=== PATIENT | male | born 1960 | race Caucasian/White ===

== ENCOUNTER 2018-02-14 07:45 | Emergency (ER) | payer BC, OTHER ==
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
--- NOTE | 2018-02-14 08:34 | RAD ---
Indication: Left humerus injury. 2 views of left humerus demonstrates no fracture. Calcific tendinitis of the supraspinatus tendon is noted. IMPRESSION: NO DEFINITE FRACTURE OF THE LEFT HUMERUS IS NOTED.
[2018-02-14 09:18] VITALS: BP 148/92
== END 2018-02-14 09:16 | disposition home or self-care (01) ==
LOC: ED 07:45
DX: S49.92XA Unspecified injury of left shoulder and upper arm, initial encounter (principal); I10 Essential (primary) hypertension; F32.9 Major depressive disorder, single episode, unspecified; V89.2XXA Person injured in unspecified motor-vehicle accident, traffic, initial encounter; Y92.9 Unspecified place or not applicable
CPT/HCPCS: 99282

== ENCOUNTER 2018-04-19 07:51 | Day surgery (SDC) | payer OTHER ==
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
[~2018-04-19 07:51] MED LIST: Buffered Lidocaine 0.9% SYRIN* 5 ML/SYR SYRINGE INTRADERM ONE; Dexamethasone IV* 4 MG/ML 1 ML (4 MG) IV SLOW PU ONE; Famotidine IV* 10 MG/ML 2 ML (20 mg) IV ONE
[2018-04-19] MEDS ORDERED: Famotidine IV* 10 MG/ML 2 ML (20 mg) ONE (08:08)
[2018-04-19] MEDS ORDERED: Dexamethasone IV* 4 MG/ML 1 ML (4 MG) ONE (08:09)
[2018-04-19] MEDS ORDERED: ceFAZolin 2 GM in NS PREMIX(*) 2 GM/100 ML BAG IVPB ONE (08:09)
[2018-04-19] MEDS ORDERED: fentaNYL* 50 MCG/ML 2 ML VIAL (100 MCG VIAL) ONE ×3 (09:15→13:53)
[2018-04-19] MEDS ORDERED: Lidocaine 2% PF * 5 ML VIAL ONE (09:16)
[2018-04-19] MEDS ORDERED: Midazolam* 1 MG/ML 5 ML VIAL (5 MG) ONE (09:16)
[2018-04-19] MEDS ORDERED: Ondansetron INJ* 2 MG/ML VIAL ONE (09:16)
[2018-04-19] MEDS ORDERED: Propofol* 10 MG/ML 20 ML BTL IV PUSH ONE (09:16)
[2018-04-19] MEDS ORDERED: ROPIVACAINE 5 MG/ML 30 ML BTL (0.5%) ONE (09:46)
[2018-04-19] MEDS ORDERED: Bupivacaine 0.5% SDV PF* 30ML VIAL ONE (10:17)
[2018-04-19] MEDS ORDERED: fentaNYL* 50 MCG/ML 2 ML VIAL (100 MCG VIAL) IV PRN (11:00)
[2018-04-19] MEDS ORDERED: DiMENhydriNATE IV* 50 MG/ML VIAL IV PUSH PRN (11:00)
[2018-04-19] MEDS ORDERED: Ondansetron INJ* 2 MG/ML VIAL IV PRN (11:00)
[2018-04-19] MEDS ORDERED: Naloxone* 0.4 MG/ML 1 ML VIAL IV PRN (11:00)
[2018-04-19] MEDS ORDERED: Glycopyrrolate IV* 0.2 MG/ML 1 ML VIAL ONE (11:27)
[2018-04-19 14:43] VITALS: BP 125/87
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
== END 2018-04-19 14:30 | disposition home or self-care (01) ==
LOC: OR 07:51
PROVIDERS: ATTEND Orthopaedic Surgery
DX: M75.122 Complete rotator cuff tear or rupture of left shoulder, not specified as traumatic (principal); I10 Essential (primary) hypertension; Z79.899 Other long term (current) drug therapy; G89.18 Other acute postprocedural pain
CPT/HCPCS: C1713; J0690; J1100; J2250; J2405; J2704; J2795; J3010; Q4125

== ENCOUNTER 2018-08-03 18:13 | Observation (INO) | payer OTHER ==
--- NOTE | 2018-08-03 18:41 | ED ---
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 There was a positive witnessed LOC with unknown length. The patient does not recall anything related to the fall. Patient reports MONTEIRO. The patient rates the pain 5/10 in severity. The patient did recently have a URI. He does take Lisinopril. - History Of Current Complaint Stated Complaint: FALL Time Seen by Provider: 08/03/18 18:25 Hx Obtained From: Patient Mechanism Of Injury: Fall From A Standing Position Onset/Duration: Started Hours Ago - a half, Still Present Onset of Pain: Immediate Severity Currently: Mild Severity Initially: Mild Pain Intensity: 5 Pain Scale Used: 0-10 Numeric Location of Head Injury: Occipital Location: Diffuse Associated Signs And Symptoms: LOC Duration Unknown, Memory Loss - Allergies/Home Medications Allergies/Adverse Reactions: Allergies Allergy/AdvReac Type Severity Reaction Status Date / Time oxycodone Allergy Severe Hives Verified 04/19/18 08:14 PMH/Surg Hx/FS Hx/Imm Hx Endocrine/Hematology History: Denies: Hx Bone Marrow Disease, Hx Diabetes, Hx Sickle Cell Disease, Hx Anemia Cardiovascular History: Reports: Hx Hypertension - ON MEDICATION FOR Denies: Hx Pacemaker/ICD Respiratory History: Denies: Hx Asthma, Other Respiratory Problems/Disorders GI History: Reports: Other GI Disorders - HX DIVERTICULOSIS History: Denies: Hx Dialysis, Hx Renal Disease Musculoskeletal History: Reports: Hx Arthritis - LEFT SHOULDER, Hx Bursitis, Other Musculoskeletal History - LEFT SHOULDER ROTATOR CUFF REPAIR X 3 Sensory History: Reports: Hx Contacts or Glasses - GLASSES Denies: Hx Cataracts, Hx Glaucoma, Hx Hearing Aid Opthamlomology History: Reports: Hx Contacts or Glasses - GLASSES Denies: Hx Cataracts, Hx Glaucoma Neurological History: Reports: Other Neuro Impairments/Disorders - LEFT SHOULDER WEAKNESS, PAIN Psychiatric History: Reports: Hx Depression - CURRENTLY NO MEDICATION FOR Denies: Hx Panic Disorder - Surgical History Surgery Procedure, Year, and Place: 09/2011- 11/2014 LEFT SHOULDER SURGERY X3 [facility] [place]. TONSILLECTOMY AND ADENOIDECTOMY A CHILD. RIGHT EAR SURGERY (IN OFFICE , BONE GROUND DOWN-NO IMPLANTS) [place] 2009. LEFT SHOULDER ROTATOR CUFF REPAIR 09/26 [facility]. LEFT SHOULDER ROTATOR CUFF REPAIR 05/30 [facility]. LEFT SHOULDER SURGERY 09/29 [facility] Hx Anesthesia Reactions: No Infectious Disease History: No Infectious Disease History: Denies: Hx Clostridium Difficile, Hx Hepatitis, Hx Human Immunodeficiency Virus (HIV), Hx of Known/Suspected MRSA, Hx Shingles, Hx Tuberculosis, Hx Known/ Suspected VRE, Hx Known/Suspected VRSA, History Other Infectious Disease, Traveled Outside the [place] in Last 30 Days - Family History Known Family History: Positive: Cardiac Disease - Social History Alcohol Use: None Substance Use Type: Reports: None Smoking Status (MU): Never Smoked Tobacco Have You Smoked in the Last Year: No Review of Systems Constitutional: Other - fall Negative: Fever, Chills Negative: Erythema Negative: Sore Throat Negative: Chest Pain Negative: Shortness Of Breath, Cough Negative: Abdominal Pain, Vomiting, Nausea Negative: dysuria, hematuria Negative: Myalgia, Edema Negative: Rash Neurological: Negative - dizziness Positive: Headache, Syncope - w/ memory loss All Other Systems Reviewed And Are Negative: Yes Physical Exam - Summary Physical Exam Summary: Constitutional: Well-developed, Well-nourished, Alert. (-) Distressed Skin: Warm, Dry HENT: there is an abrasion on the occipital area. Eyes: Conjunctiva normal Neck: Musculoskeletal ROM normal neck. (-) JVD, (-) Stridor, (-) Tracheal deviation Cardio: Rhythm regular, rate normal, Heart sounds normal; Intact distal pulses; The pedal pulses are 2+ and symmetric. Radial pulses are 2+ and symmetric. (-) Murmur Pulmonary/Chest wall: Effort normal. (-) Respiratory distress, (-) Wheezes, (-) Rales Abd: Soft. (-) Tenderness, (-) Distension, (-) Guarding, (-) Rebound Musculoskeletal: (-) Edema Lymph: (-) Cervical adenopathy Neuro: Alert, Oriented x3, Strength normal, Cranial nerves II-XII are grossly intact. (-) Dysmetria, (-) Nystagmus, (-) Ataxia by finger to nose testing, (-) Sensory deficit. Psych: Mood and affect Normal Triage Information Reviewed: Yes Vital Signs On Initial Exam: Initial Vitals Temp Pulse Resp BP Pulse Ox 99.8 F 83 18 145/82 97 08/03/18 18:24 08/03/18 18:24 08/03/18 18:24 08/03/18 18:24 08/03/18 18:24 Vital Signs Reviewed: Yes - Naya Coma Scale Best Eye Response: 4 - Spontaneous Best Motor Response: 6 - Obeys Commands Best Verbal Response: 5 - Oriented Coma Scale Total: 15 Diagnostics - Vital Signs Vital Signs Temp Pulse Resp BP Pulse Ox 08/03/18 18:24 99.8 F 83 18 145/82 97 - Laboratory Result Diagrams: 08/03/18 18:54 08/03/18 18:54 Lab Statement: Any lab studies that have been ordered have been reviewed, and results considered in the medical decision making process. - Radiology CXR Radiology Interpretation Completed By: ED Physician Summary of Radiographic Findings: no acute disease . Pending official report - CT CT Cspine CT Interpretation Completed By: Radiologist Summary of CT Findings: No acute abnormality. Straightening of the cervical spine which may be muscular/ligamentous strain. Multilevel uncovertebral and facet Atrophic with neural foramina narrowing. ED physician has reviewed this radiology report. CT brain CT Interpretation Completed By: Radiologist Summary of CT Findings: No acute intracranial abnormality. Chronic microvascular ischemic changes. ED physician has reviewed this radiology report. - EKG 1911 Cardiac Rate: NL EKG Rhythm: Sinus Rhythm - at 74 BPM Summary of EKG Findings: no STEMI Re-Evaluation - Re-Evaluation First Eval Re-Evaluation Time: 20:34 Change: Unchanged Comment: The patient was offered an ice pack and pain medications and he declined both. He does have a stable mental status. 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 There was a positive witnessed LOC with unknown length. The patient does not recall anything related to the fall. Patient reports MONTEIRO. The patient rates the pain 5/10 in severity. The patient did recently have a URI. He does take Lisinopril. An EKG reveals NSR. CT Brain reveals, per radiologist, No acute intracranial abnormality. Chronic microvascular ischemic changes. CXR reveals, per radiologist, no acute disease. CT C-spine reveals, per radiologist , No acute abnormality. Straightening of the cervical spine which may be muscular/ligamentous strain. Multilevel uncovertebral and facet Atrophic with neural foramina narrowing. Bloodwork obtained. In the ED course the patient was given tylenol. The LOC was most likely secondary to concussion. Although since he has no recollection the patient will be admitted to r/o [facility]. We discussed patient care with Dr. Houston and she has accepted the patient for admision. Patient will be admitted. The patient is agreeable with this plan. - Diagnoses Provider Diagnoses: Closed head injury, LOC (loss of consciousness) - Physician Notifications Discussed Care Of Patient With: Esha Houston Time Discussed With Above Provider: 20:50 Instructed by Provider To: Admit As Inpatient Discharge - Sign-Out/Discharge Documenting (check all that apply): Patient Departure - admitted - Discharge Plan Condition: Fair Disposition: ADMITTED TO [facility] Referrals: Nubia ACOSTA,Clare Pace [Primary Care Provider] - - Attestation Statements Document Initiated by Scribe: Yes Documenting Scribe: Brayan David Provider For Whom Scribe is Documenting (Include Credential): Andrew Rivas MD Scribe Attestation: Brayan Sauceda , scribed for Andrew Rivas MD on 08/03/18 at 2058. Status of Scribe Document: Ready
[2018-08-03 19:03] LABS: ABS Basophils 0.1 10^3/ul (0-0.2); ABS Eosinophils 0.3 10^3/ul (0-0.6); ABS Lymphocytes 2.2 10^3/ul (1.0-4.8); ABS Monocytes 1.1 10^3/ul (0-0.8); ABS Nucleated RBC 0 10^3/ul; Eosinophil % 2.6 %; Hematocrit 45 % (42-52); Hemoglobin 15.2 g/dl (14.0-18.0); Lymphocyte % 22.8 %; Mean Corpuscular HGB Conc 34 g/dl (31-36); Mean Corpuscular Hemoglobin 29 pg (27-31); Mean Corpuscular Volume 85 fL (80-94); Mean Platelet Volume 8.4 fL (7.4-10.4); Nucleated Red Blood Cells % 0.1; Platelet Count 193 10^3/ul (150-450); Red Blood Count 5.28 10^6/ul (4.00-5.40); Red Cell Distribution Width 14 % (10.5-15); White Blood Count 9.7 10^3/ul (3.5-10.8)
[2018-08-03] MEDS ORDERED: Acetaminophen TAB* 325 MG PO ONE (19:03)
[2018-08-03 19:31] LABS: Albumin 4.1 g/dL (3.2-5.2); Albumin/Globulin Ratio 1.2 (1-3); BUN/Creatinine Ratio 22.2 (8-20); Calcium 9.8 mg/dL (8.6-10.3); Globulin 3.4 g/dL (2-4); Potassium 4.5 mmol/L (3.5-5.0); Total Bilirubin 0.3 mg/dL (0.2-1.0); Total Protein 7.5 g/dL (6.4-8.9)
[2018-08-03] MEDS ORDERED: Acetaminophen TAB* 325 MG PO PRN (21:08)
[2018-08-03] MEDS ORDERED: Ondansetron INJ* 2 MG/ML VIAL IV PRN (21:08)
--- NOTE | 2018-08-03 23:08 | HP ---
CC: Dr. Marin * ADMISSION HISTORY AND PHYSICAL: DATE OF ADMISSION: 08/03/18 PRIMARY CARE PROVIDER: Dr. Marin. MY ATTENDING WHILE IN THE HOSPITAL: Dr. Esha An.* (DICTATED BY KRISTINA FALK) CHIEF COMPLAINT: Fall on the ice with loss of consciousness and memory loss. HISTORY OF PRESENT ILLNESS: Mr. 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 The patient states that he remembers being in the office and then remembers being in the ambulance. Does not remember anything in between. The patient denies nausea, vomiting, headache, chest pain , or shortness of breath. The patient denies recent illness. The patient denies palpitations. The patient does not remember any prodromal symptoms to this episode. The patient had a recent cough for a month related to upper respiratory infection, but this has now resolved. The patient was in a normal state of health. The patient denies dysuria, abdominal pain, diarrhea, dehydration, weight loss, weight gain, swelling in his legs, difficulty breathing when lying flat, dyspnea on exertion, or other alarming symptoms. The patient was brought in by EMS to the hospital. The patient had a brain CT which was negative, electrocardiogram which was unremarkable. Cervical spine CT shows possible whiplash injury, but no other traumatic injury and a brain CT which showed no acute intracranial pathology. Due to memory loss surrounding the patient's incident and his age and risk factors for arrhythmia, we were asked to evaluate the patient for admission. PAST MEDICAL HISTORY: Hypertension. PAST SURGICAL HISTORY: Left shoulder surgery x4. MEDICATIONS: 1. Lisinopril/hydrochlorothiazide 20/12.5 one tab p.o. q.a.m. 2. Niacin 250 mg p.o. q.a.m. ALLERGIES: PERCOCET. FAMILY HISTORY: The patient's mother had a heart attack. The patient's father of a complicated appendix. The patient's brother has hypertension. The patient's 2 sisters have hypertension. The patient has a brother who of stomach cancer. SOCIAL HISTORY: The patient never smoked, drank, or used illicit drugs. 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 The patient is , has 2 children. The patient's surrogate decision maker will be his , Tena Vaughn. REVIEW OF SYSTEMS: A 14-point review of systems has been reviewed with the patient and is negative except as above in the HPI. PHYSICAL EXAMINATION GENERAL: The patient is a 57-year-old male who appears stated age, sitting comfortably in bed, in no acute distress. HEENT: Head normocephalic. The patient has a large contusion over his posterior scalp, no crepitus palpated. Sclerae anicteric. No conjunctival injection. Nasal mucosa moist. Oral mucosa moist. No oropharyngeal erythema, discharge, or exudate. NECK: Supple, nontender. No lymphadenopathy, no carotid bruits auscultated, no JVD. RESPIRATORY: Clear to auscultation bilaterally. No wheezes, rales, or rhonchi. Good air exchange bilaterally. CARDIAC: Regular rate and rhythm. No clicks, murmurs, gallops, or rubs. Pulses 2+ in the bilateral dorsalis pedis, posterior tibialis, and radial areas. ABDOMEN: Soft, nontender, and nondistended. Bowel sounds present in all 4 quadrants. No hepatosplenomegaly. No abdominal bruits auscultated. No hepatojugular reflux. GENITOURINARY: No suprapubic or CVA tenderness. SKIN: Clean, dry, and intact. No rashes except for above ecchymosis on the posterior scalp. NEUROLOGIC: Cranial nerves II through XII intact. alert and oriented x3. Reflexes 2+ in bilateral biceps, patellar and Achilles areas. Cerebellar testing performed without difficulty. No nystagmus. PSYCHIATRIC: Pleasant and cooperative. LABORATORY DATA: White blood cell count 9.7, hemoglobin 15.2, platelet count 193,000. Sodium 138, potassium 4.5, chloride 103, carbon dioxide 27, anion gap 8, BUN 24, creatinine 1.08, lactic acid 1.6, calcium 9.8, bilirubin 0.3, AST 23 , ALT 30, alkaline phosphatase 61. Troponin I of 0.00. Protein 7.5, albumin 4.1, globulin 3.4. IMAGING: Chest x-ray no official read, poor quality study, no acute cardiopulmonary disease to this author's interpretation. An EKG shows rate of 74; QTc of 428; early repolarization in V2, V3, and V4; normal axis; no hypertrophy or enlargement. Compared with previous study, no significant changes. Brain CT read as no acute intracranial pathology. Cervical spine CT read as straightening of the cervical spine which may be muscular/ligamentous strain, multilevel vertebral atrophy with neuroforaminal narrowing. No acute abnormality. ASSESSMENT AND PLAN/IMPRESSION: Mr. Vaughn is a 57-year-old male with past medical history significant only for hypertension who presents to the emergency department after a fall with a likely concussion, but will be monitored overnight to rule out syncopal episode. 1. Loss of consciousness, concussion. The patient had what appears to be a mechanical fall on the ice which was witnessed by a hockey defensive secondary coach and several of his team members. The patient does not remember anything after being in the office, before he walked on the ice, and before being in the ambulance on the way to the hospital. The patient denies any prodromal symptoms. The patient is not having any symptoms of heart failure or acute coronary syndrome at this time. The patient has mild pain. The patient will be admitted to the hospital , have 3 troponins to rule out acute coronary syndrome. The patient will have a repeat EKG in the morning and transthoracic echocardiogram to rule out any wall motion abnormalities which may predispose to arrhythmia. The patient has no postictal symptoms, just amnesia. It is very likely the patient has a concussion. EEG is not indicated at this time unless the patient has a recurrent event. 2. Hypertension. Continue Zestoretic. 3. DVT prophylaxis. The patient is low risk and will have SCDs. 4. FEN. The patient will have a heart-healthy diet without caffeine and the patient does not need any fluids. 5. Disposition. The patient will be on observation. TIME SPENT: Approximately 45 minutes were spent on this admission, 30 of which was spent [id number] with the patient obtaining history and physical and discussing treatment plan. This plan was discussed with my attending, Dr. Esha An and she is in agreement. KRISTINA FALK [id number]/[facility] #: [id number] ENZO
[2018-08-04 07:22] LABS: BUN/Creatinine Ratio 21.4 (8-20); Calcium 9.2 mg/dL (8.6-10.3); EGFR Non-African American 78.3 (>60); HDL Cholesterol 36.3 mg/dL; Potassium 4.3 mmol/L (3.5-5.0)
[2018-08-04] MEDS ORDERED: Lisinopril TAB* 10 MG PO SCH (09:00)
[2018-08-04] MEDS ORDERED: Hydrochlorothiazide TAB* 25 MG PO SCH (09:00)
--- NOTE | 2018-08-04 11:20 | ECHO ---
Patient: BRE CELAYA 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 Technical Comments: The study quality is fair. Completed at 1025. Left Ventricle: The left ventricular chamber size is normal. Mild concentric left ventricular hypertrophy is observed. There is normal left ventricular systolic function. The estimated ejection fraction is 55-60%. Abnormal left ventricular diastolic function is observed. Left Atrium: The left atrial chamber size is normal. Right Ventricle: The right ventricular cavity size is normal. The right ventricular global systolic function is normal. Right Atrium: The right atrial cavity size is normal. Aortic Valve: The aortic valve is trileaflet. There is no evidence of aortic regurgitation. There is no evidence of aortic stenosis. Mitral Valve: The mitral valve leaflets are mildly thickened. There is no evidence of mitral regurgitation. There is no evidence of mitral stenosis. Tricuspid Valve: The tricuspid valve leaflets are normal. There is no evidence of tricuspid valve regurgitation. There is no tricuspid stenosis. Pulmonic Valve: The pulmonic valve appears normal. There is no evidence of pulmonic regurgitation. There is no pulmonic stenosis. Pericardium: The pericardium appears normal. Aorta: There is no dilatation of the ascending aorta. There is no dilatation of the aortic arch. There is no dilation of the aortic root. Pulmonary Artery: The main pulmonary artery appears normal. Venous: The venous system is not well visualized. Summary: There was not any prior study for comparison. Conclusions The left ventricular chamber size is normal. Mild concentric left ventricular hypertrophy is observed. The estimated ejection fraction is 55-60%. Abnormal left ventricular diastolic function is observed. No significant valvular disease. Measurements Name Value Normal Range RVIDd (AP) 2D 2.8 cm (0.9 - 2.6) RVDdMajor (2D) 3 cm (2.2 - 4.4) RAd ISD 4CH 5.5 cm (3.4 - 4.9) RA (A4C)W 3.2 cm (2.9 - 4.6) IVSd (2D) 1.1 cm (0.6 - 1) LVPWd (2D) 1.2 cm (0.6 - 1) LVIDd (2D) 5.2 cm (3.6 - 5.4) LVIDs (2D) 3.3 cm - LV FS (2D) 37 % (25 - 45) Aortic Annulus 2.1 cm (1.4 - 2.6) Ao root diameter (2D) 3 cm (2.1 - 3.5) Ascending Ao 3.4 cm (2.1 - 3.4) Aortic arch 3.2 cm (1.8 - 3.4) Descending Ao 0.6 cm - LA dimension (AP) 2D 3.7 cm (2.3 - 3.8) LAd ISD 4CH 5.2 cm (2.9 - 5.3) LA ISD 4CH W 3.8 cm (2.5 - 4.5) Name Value Normal Range LA ESV SP 4CH (A/L) 17 ml - LA ESV SP 2CH (A/L) 31 ml - LA ESV BP (A/L) index 23.4 ml/m2 - Name Value Normal Range MV E-wave Vmax 0.6 m/sec - MV deceleration time 278 msec - MV A-wave Vmax 0.8 m/sec - MV E:A ratio 0.8 ratio - LV septal e' Vmax 0.1 m/sec - LV E:e' septal ratio 6 ratio - Name Value Normal Range AV Vmax 1.5 m/sec - AV VTI 26 cm - AV peak gradient 9 mmHg - AV mean gradient 4 mmHg - LVOT Vmax 1.1 m/sec - LVOT VTI 21 cm - LVOT peak gradient 5 mmHg - LVOT mean gradient 2 mmHg - Name Value Normal Range PV Vmax 1.1 m/sec - PV peak gradient 5 mmHg -
[2018-08-04 11:42] VITALS: BP 110/70
--- NOTE | 2018-08-05 00:49 | DS ---
CC: Dr. Marin DISCHARGE SUMMARY: DATE OF ADMISSION: 08/03/18 DATE OF DISCHARGE: 08/04/18 PRIMARY CARE PROVIDER: Dr. Marin. ATTENDING PHYSICIAN: Dr. Flores (dictated by Jose Carlos Lindquist NP). PRIMARY DIAGNOSES: 1. Mechanical fall with resulting concussion. 2. Hyperlipidemia. SECONDARY DIAGNOSIS: 1. Hypertension. STUDIES WHILE IN THE HOSPITAL: 1. Chest x-ray on 08/03/18, reads as no evidence for acute intrathoracic disease. 2. EKG on 08/03/18, shows normal sinus rhythm with a rate of 74, QTc 428, no ischemic changes. 3. Brain CT on 08/03/18, reads as no acute intracranial abnormality. Chronic microvascular ischemic changes. 4. Cervical spine CT on 08/03/18, reads as no acute abnormality. Straightening of the cervical spine which may be muscular/ligamentous strain. Multilevel uncovertebral and facet atrophic with neural foraminal narrowing. 5. EKG on 08/04/18, shows normal sinus rhythm with a rate of 80, QTc 440, no ischemic changes. No changes from previous EKG. 6. Transthoracic echocardiogram on 08/04/18, reads as the left ventricular chamber size is normal. Mild concentric left ventricular hypertrophy is observed. The estimated ejection fraction is 55% to 60%. Abnormal left ventricular diastolic function is observed. No significant valvular disease. HISTORY OF PRESENT ILLNESS AND HOSPITAL COURSE: Mr. Vaughn is a 57-year-old male with past medical history of hypertension, who presented through the emergency room on 08/03/18 after a mechanical fall with loss of consciousness. Please see the history and physical by KRISTINA Dwyer for complete summary of the events leading up to this hospitalization. 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 He lost consciousness for an unknown period of time and was brought to the emergency room by EMS. The patient does have memory of being in the ambulance, though does not remember anything prior to that after the fall. He had no nausea, vomiting, headache, chest pain, or shortness of breath. He had imaging as noted above which was essentially unremarkable. Due to his risk factors, the patient was admitted by the hospitalist service for loss of consciousness. The patient had an uneventful night. He had a lipid panel which showed triglycerides of 120, total cholesterol of 137, LDL of 77, and HDL of 36. He had an A1c of 6.1%. He had an echocardiogram as noted above. Syncope workup has been unremarkable. The patient reports feeling well today. He has no complaints of nausea, vomiting, dizziness, headache, difficulty concentrating, or visual changes. He has no focal neurological deficits. He still does not have any memory of the fall itself, though remembers working on the ice and slipping and remembers waking up in the ambulance. Because of his unremarkable workup, there are no cardiac or further neurological concerns at this point. Mr. Vaughn is stable for discharge today. Vital signs are as follows: Temp 98.1, heart rate 77, respiratory rate 16, oxygen saturation 97% on room air, blood pressure 110/70. DISCHARGE MEDICATIONS: New medications: Atorvastatin 10 mg p.o. at bedtime. Continued medications: Lisinopril/hydrochlorothiazide 20/12.5 one tab p.o. daily. Discontinued medications: Niacin. DISCHARGE PLAN: Mr. Vaughn will be discharged home with his . Activity will be as tolerated, though I have advised him to take it easy for the next few days due to his concussion. Diet will be regular as tolerated. I did speak with the patient about his elevated A1c which does put him in the range for prediabetes and encouraged weight loss and diet changes. I also spoke with the patient about his lipid panel and although lipids are under good control, according to the ASCVD risk algorithm, the patient has a 6.7% risk of cardiovascular event in the next 10 years; and therefore, a moderate intensity statin is recommended. I did speak with the patient about diet changes, though he is agreeable to starting a statin at this point for primary prevention. He should discontinue his niacin due to the possible interaction with atorvastatin. He can continue his lisinopril/hydrochlorothiazide. He should follow up with his primary care provider in 4 to 7 days. He has been advised to return to the emergency room or nearest hospital for any worsening of symptoms, shortness of breath, lightheadedness, dizziness, chest discomfort, high fevers, chills, night sweats, loss of consciousness, or any other worrisome signs or symptoms. This is a summarized report of a complex medical history and hospital stay. For further details, please see the entire medical record. TIME SPENT: Approximately 35 minutes were spent on this discharge. JOSE CARLOS LINDQUIST, BRUSHER HAND [id number]/[facility] #: [id number] MTDAlexis
== END 2018-08-04 12:35 | disposition home or self-care (01) ==
LOC: ED 18:13 → MEDTELE 21:09
PROVIDERS: ADMIT Internal Medicine; ATTEND Internal Medicine
DX: S06.0X9A Concussion with loss of consciousness of unspecified duration, initial encounter (principal); E78.5 Hyperlipidemia, unspecified; I10 Essential (primary) hypertension; W19.XXXA Unspecified fall, initial encounter; Y92.9 Unspecified place or not applicable
CPT/HCPCS: 36415; 70450; 71045; 72125; 80048; 80053; 80061; 83036; 83605; 83735; 84484; 85025; 93005; 93306; 96374; 96375; 99284; A9270-GY; G0378